=== PATIENT | female | born 1980 | race African-American/Black ===

== ENCOUNTER 2016-06-26 10:02 | Emergency (ER) | payer MEDICAID, OTHER ==
[~2016-06-26] VITALS: Ht 170.2 cm; Wt 80.5 kg
[~2016-06-26 10:02] MED LIST: ALBU8I INH; AMOX500T PO; PRED20 PO; SYMB80AE INH
[2016-06-26 10:04] VITALS: BP 115/66; PULSE 84; RESP 20; TEMP 98.6; O2SAT 98
--- NOTE | 2016-06-26 10:21 | PD ---
HPI . chronic right shoulder pain Chief Complaint: Injury Time Seen by Provider: 10:21 Travel History International Travel<30 days: No Contact w/Intl Traveler<30days: No Traveled to known affect area: No History of Present Illness HPI 35-year-old female with chronic right shoulder pain here with complaints of worsening pain for the past 2 days. Patient says that she was cooking spaghetti and does not recall any type of injury. She is complaining of right shoulder pain and has difficulty moving her right shoulder in abduction and abduction positions. She tells me that she's had shoulder problems and seen her primary care provider. She had an x-ray done, but was never called back on the results. She tells me that more than likely she is certain that the x-ray was normal. She has no other complaints. PFSH Past Medical History Hx Anticoagulant Therapy: No Cardiovascular Problems: No Chemotherapy: No Cerebrovascular Accident: No Diabetes: Yes Respiratory: Yes (Asthma) ?: Not LMP: My period started today Social History Alcohol Use: No Tobacco Use: No Allergies-Medications (Allergen,Severity, Reaction): Coded Allergies: No Known Allergies (Unverified , 05/19/15) Reported Meds & Prescriptions Reported Meds & Active Scripts Active Robaxin (Methocarbamol) 500 Mg Tab 500 Mg PO TID Ibuprofen 800 Mg Tab 800 Mg PO TID Amoxicillin 500 Mg Cap 500 Mg PO Q8 7 Days Deltasone (Prednisone) 20 Mg Tab 20 Mg PO TID Reported Ventolin Hfa (Albuterol Sulfate) 8 Gm Aero 1 Puff INH Q4 * SHAKE WELL BEFORE USE * Symbicort (Budesonide/Formoterol Fumarate) 80 Mcg/4.5 Mcg Aer 2 Puff INH BID * SHAKE WELL BEFORE USE * Review of Systems General / Constitutional: No: Fever Eyes: No: Visual changes HENT: No: Headaches Cardiovascular: No: Chest Pain or Discomfort Respiratory: No: Shortness of Breath Gastrointestinal: No: Abdominal Pain Genitourinary: No: Dysuria Musculoskeletal: Positive: Pain (right shoulder) Skin: No Rash Neurologic: No: Weakness Psychiatric: No: Depression Endocrine: No: Polydipsia Hematologic/Lymphatic: No: Easy Bruising Physical Exam Narrative GENERAL: AAO x 3, no acute distress, Well-nourished, well-developed patient. SKIN: Warm and dry. No visible rashes or bruising. No ecchymosis or edema of the right shoulder HEAD: Normocephalic and atraumatic. EYES: No scleral icterus. No injection or drainage. ENT: No nasal drainage noted. NECK: Supple, trachea midline. No JVD. CARDIOVASCULAR: Regular rate and rhythm without murmurs, gallops, or rubs. RESPIRATORY: Breath sounds equal bilaterally. No accessory muscle use. No rhonchi or rales. GASTROINTESTINAL: Visual inspection normal EXTREMITIES: No cyanosis or edema. Right shoulder decreased ability to abduct. Abduction is normal. She is able to cross her arms and rotate them normally. + lift off test BACK: Nontender without obvious deformity. No CVA tenderness. PSYCH: AAO x 3, normal affect. Data Data Last Documented VS Vital Signs Date Time Temp Pulse Resp B/P Pulse Ox O2 Delivery O2 Flow Rate FiO2 06/26/16 10:04 98.6 84 20 115/66 98 Room Air Orders Support Splint (06/26/16 10:39) MDM Medical Decision Making Medical Screen Exam Complete: Yes Emergency Medical Condition: Yes Medical Record Reviewed: Yes Differential Diagnosis Chronic shoulder pain, rotator cuff injury, less likely shoulder dislocation, less likely shoulder fracture Narrative Course This is a 35-year-old female with chronic shoulder pain. Full examination was done of the right shoulder and it appears that she may have a rotator cuff injury. I have discussed these findings with her and recommended follow-up with her primary care provider. In the meantime I'll provide her with some muscle relaxers see if this helps provide any relief. I discussed side effects. Sling provided for support. Patient verbalized understanding of instructions, questions were answered, and thanked me for their care. I advised them if their condition worsens, please return to the nearest emergency room for further care. Diagnosis Primary Impression: Right shoulder pain Qualified Code: M25.511 - Chronic right shoulder pain Additional Impression: Muscle strain, shoulder region Qualified Code: S46.911A - Muscle strain, shoulder region, right, initial encounter Patient Instructions: General Instructions Additional Instructions: Muscle relaxers can cause drowsiness. Do not drive, swim or operate heavy machinery while using these medications. Please return to emergency department if your symptoms return or worsen. Follow up with your primary care provider. Take medications as prescribed. Med/Other Pt SpecificInfo: Prescription(s) given Scripts Methocarbamol (Robaxin)500 Mg [id number] Mg PO TID #21 TAB Prov:Madhuri Perez DO 06/26/16 Ibuprofen 800 Mg [id number] Mg PO TID #21 TAB Prov:Madhuri Perez DO 06/26/16 Disposition: 01 DISCHARGE HOME Condition: Stable Brenda Fleming June 26, 2016 10:21 Brenda Fleming June 26, 2016 10:21
[2016-06-26] MEDS ORDERED: ROBA500T PO (10:26)
[2016-06-26] MEDS ORDERED: IBUP800T23 PO (10:26)
== END 2016-06-26 10:46 | disposition home or self-care (01) ==
LOC: NEPK 10:02
DX: S46.911A Strain of unspecified muscle, fascia and tendon at shoulder and upper arm level, right arm, initial encounter (principal); M25.511 Pain in right shoulder; G89.29 Other chronic pain; E11.9 Type 2 diabetes mellitus without complications; J45.909 Unspecified asthma, uncomplicated; X58.XXXA Exposure to other specified factors, initial encounter
CPT/HCPCS: 99283

== ENCOUNTER 2016-10-01 23:47 | Emergency (ER) | payer MEDICAID ==
[~2016-10-01] VITALS: Ht 170.2 cm; Wt 80.0 kg
[~2016-10-01 23:47] MED LIST changes: +IBUP800T23 PO; +ROBA500T PO
[2016-10-01 23:49] VITALS: BP 122/67; PULSE 68; RESP 20; TEMP 98.3; O2SAT 99
--- NOTE | 2016-10-02 01:06 | PD ---
HPI Chief Complaint: Chest Pain Time Seen by Provider: 00:40 Travel History International Travel<30 days: No Contact w/Intl Traveler<30days: No Traveled to known affect area: No History of Present Illness HPI 36 years old female complains of chest pain. Patient started having palpitation and generalized malaise 2 days ago. Patient went to local urgent care and was referred to [facility] emergency room for evaluation. Patient states that she had x-ray, EKG and blood test done and was normal. Patient was discharged home. Patient started having sharp stabbing pain localized to the left chest about 2 hours prior coming to emergency room tonight. Patient denies any today. Patient denies any cough and congestion fever chills. Patient denies abdominal pain. Patient denies any nausea vomiting diarrhea. Patient states that she has yeast infection recently. Patient denies a history of CAD. Patient denies history hypertension. Patient has history of diabetes and asthma. Patient denies history of hyperlipidemia. Patient states that she stopped smoking 3 days ago. Patient denies any family history of heart disease. Patient states that she was told that she had PVC 2 days ago. PFSH Past Medical History Hx Anticoagulant Therapy: No Asthma: Yes Cardiovascular Problems: No Chemotherapy: No Cerebrovascular Accident: No Diabetes: Yes Patient Takes Glucophage: No Diminished Hearing: No Respiratory: Yes (Asthma) Tetanus Vaccination: Unknown ?: Not LMP: 06/21/2016 Past Surgical History Appendectomy: Yes Social History Alcohol Use: No Tobacco Use: No Substance Use: No Allergies-Medications (Allergen,Severity, Reaction): Coded Allergies: No Known Allergies (Unverified , 10/02/16) Reported Meds & Prescriptions Reported Meds & Active Scripts Active No Active Prescriptions or Reported Medications Review of Systems General / Constitutional: No: Fever Eyes: No: Visual changes HENT: No: Headaches Cardiovascular: Positive: Chest Pain or Discomfort Respiratory: No: Shortness of Breath Gastrointestinal: No: Abdominal Pain Genitourinary: No: Dysuria Musculoskeletal: No: Pain Skin: No Rash Neurologic: No: Weakness Psychiatric: No: Depression Endocrine: No: Polydipsia Hematologic/Lymphatic: No: Easy Bruising Physical Exam Narrative GENERAL: Well-nourished, well-developed patient. SKIN: Focused skin assessment warm/dry. HEAD: Normocephalic. EYES: No scleral icterus. No injection or drainage. NECK: Supple, trachea midline. No JVD or lymphadenopathy. CARDIOVASCULAR: Regular rate and rhythm without murmurs, gallops, or rubs. RESPIRATORY: Breath sounds equal bilaterally. No accessory muscle use. GASTROINTESTINAL: Abdomen soft, non-tender, nondistended. MUSCULOSKELETAL: No cyanosis, or edema. BACK: Nontender without obvious deformity. No CVA tenderness. Neurologic exam normal. Data Data Last Documented VS Vital Signs Date Time Temp Pulse Resp B/P (MAP) Pulse Ox O2 Delivery O2 Flow Rate FiO2 10/02/16 00:10 98 Room Air 10/01/16 23:49 98.3 68 20 122/67 (85) Orders Orders Complete Blood Count With Diff (10/02/16 00:53) Comprehensive Metabolic Panel (10/02/16 00:53) Creatine Kinase (Cpk) (10/02/16 00:53) Troponin I (10/02/16 00:53) Prothrombin Time / Inr (Pt) (10/02/16 00:53) Act Partial Throm Time (Ptt) (10/02/16 00:53) Thyroid Stimulating Hormone (10/02/16 00:53) Chest, Single Ap (10/02/16 00:53) Iv Access Insert/Monitor (10/02/16 00:53) Ecg Monitoring (10/02/16 00:53) Oximetry (10/02/16 00:53) Labs Laboratory Tests Test 10/02/16 01:03 White Blood Count 14.3 TH/MM3 Red Blood Count 4.93 MIL/MM3 Hemoglobin 14.6 GM/DL Hematocrit 44.0 % Mean Corpuscular Volume 89.3 FL Mean Corpuscular Hemoglobin 29.6 PG Mean Corpuscular Hemoglobin Concent 33.2 % Red Cell Distribution Width 13.9 % Platelet Count 317 TH/MM3 Mean Platelet Volume 8.3 FL Neutrophils (%) (Auto) 62.8 % Lymphocytes (%) (Auto) 28.9 % Monocytes (%) (Auto) 7.0 % Eosinophils (%) (Auto) 0.9 % Basophils (%) (Auto) 0.4 % Neutrophils # (Auto) 9.0 TH/MM3 Lymphocytes # (Auto) 4.1 TH/MM3 Monocytes # (Auto) 1.0 TH/MM3 Eosinophils # (Auto) 0.1 TH/MM3 Basophils # (Auto) 0.1 TH/MM3 CBC Comment DIFF FINAL Differential Comment Prothrombin Time 11.7 SEC Prothromb Time International Ratio 1.1 RATIO Activated Partial Thromboplast Time 27.4 SEC Blood Urea Nitrogen 11 MG/DL Creatinine 0.98 MG/DL Random Glucose 80 MG/DL Total Protein 7.9 GM/DL Albumin 4.1 GM/DL Calcium Level 9.2 MG/DL Alkaline Phosphatase 93 U/L Aspartate Amino Transf (AST/SGOT) 10 U/L Alanine Aminotransferase (ALT/SGPT) 16 U/L Total Bilirubin 0.9 MG/DL Sodium Level 140 MEQ/L Potassium Level 3.9 MEQ/L Chloride Level 108 MEQ/L Carbon Dioxide Level 21.5 MEQ/L Anion Gap 11 MEQ/L Estimat Glomerular Filtration Rate 78 ML/MIN Total Creatine Kinase 108 U/L Troponin I LESS THAN 0.02 NG/ML Thyroid Stimulating Hormone 3rd Gen 2.090 uIU/ML [facility] Medical Decision Making Medical Screen Exam Complete: Yes Emergency Medical Condition: Yes Interpretation(s) 2:06 AM. EKG shows sinus rhythm nonspecific ST-T wave change. Chest x-ray shows no acute cardiopulmonary disease. CBC WBC 14.3. Normal differential. CMP within normal limit. Cardiac enzymes are normal. Differential Diagnosis Differential diagnosis including PAC, PVCs, atrial fibrillation, atrial flutter , SVT, angina, OK, PE, pneumothorax, atypical chest pain. Narrative Course 36 old female with chest pain and history of arrhythmia. Diagnosis Primary Impression: Atypical chest pain Additional Impression: Cardiac arrhythmia Qualified Codes: I49.9 - Cardiac arrhythmia, unspecified Patient Instructions: General Instructions Additional Instructions: Aspirin daily. Follow-up with timber grader. Return if worse. Avoid caffeine products. Med/Other Pt SpecificInfo: No Meds Exist/No RX given Scripts No Active Prescriptions or Reported Meds Disposition: 01 DISCHARGE HOME Condition: Stable Rustam Zaidi MD Oct 02, 2016 01:06
--- NOTE | 2016-10-02 01:21 | RADRPT ---
EXAM DATE/TIME: 10/02/2016 01:08 [place] COMPARISON: No previous studies available for comparison. INDICATIONS : Chest pain. MEDICAL HISTORY : Diat[employer] SURGICAL HISTORY : None. ENCOUNTER: Initial ACUITY: 1 day PAIN SCORE: 6/10 LOCATION: Bilateral chest FINDINGS: A single view of the chest demonstrates the lungs to be symmetrically aerated without evidence of mas s, infiltrate or effusion. The cardiomediastinal contours are unremarkable. Osseous structures are intact. CONCLUSION: Normal examination. Derek Rosenberg MD on October 02, 2016 at 1:19 Board Certified Radiologist. This report was verified electronically.
[2016-10-02 01:30] LABS: BASOPHIL # 0.1 TH/MM3 (0-0.2); BASOPHIL % 0.4 % (0.0-2.0); EOSINOPHIL # 0.1 TH/MM3 (0-0.4); EOSINOPHIL % 0.9 % (0.0-4.0); HEMO FLAGS DIFF FINAL; LYMPH % 28.9 % (9.0-44.0); LYMPHOCYTE # 4.1 TH/MM3 (1.0-4.8); MEAN CELL VOLUME 89.3 FL (80.0-100.0); MEAN CORPUSCULAR HEMOGLOBIN 29.6 PG (27.0-34.0); MEAN CORPUSCULAR HGB CONC 33.2 % (32.0-36.0); NEUT % 62.8 % (16.0-70.0); PLATELET COUNT 317 TH/MM3 (150-450); RED BLOOD COUNT 4.93 MIL/MM3 (4.00-5.30); RED CELL DISTRIBUTION WIDTH 13.9 % (11.6-17.2); WHITE BLOOD COUNT 14.3 TH/MM3 (4.0-11.0)
[2016-10-02 01:45] LABS: APTT (PATIENT) 27.4 SEC (24.3-30.1); INTERNATIONAL NORMALIZED RATIO 1.1 RATIO; PROTHROMBIN TIME - PATIENT 11.7 SEC (9.8-11.6)
[2016-10-02 01:51] LABS: ALT (GPT) 16 U/L (10-53); ANION GAP 11 MEQ/L (5-15); AST (GOT) 10 U/L (15-37); BICARBONATE 21.5 MEQ/L (21.0-32.0); BLOOD UREA NITROGEN 11 MG/DL (7-18); CHLORIDE 108 MEQ/L (98-107); GLOMERULAR FILTRATION RATE 78 ML/MIN (>89); POTASSIUM 3.9 MEQ/L (3.5-5.1); SODIUM (NA) 140 MEQ/L (136-145)
[2016-10-02 02:00] LABS: ALKALINE PHOSPHATASE 93 U/L (45-117); CREATINE KINASE 108 U/L (26-192); TOTAL BILIRUBIN ADULT 0.9 MG/DL (0.2-1.0)
--- NOTE | 2016-10-02 15:58 | EKG ---
Date Performed: 10/02/2016 Time Performed: 00:13:43 PTAGE: 36 years EKG: Sinus rhythm NONSPECIFIC ST ELEVATION BORDERLINE ECG NO PREVIOUS TRACING DOCTOR: Mik Parra Interpretating Date/Time 10/02/2016 15:56:57
== END 2016-10-02 02:29 | disposition home or self-care (01) ==
LOC: NEPC 23:47
DX: R07.89 Other chest pain (principal); R00.2 Palpitations; R53.81 Other malaise; I49.9 Cardiac arrhythmia, unspecified; J45.909 Unspecified asthma, uncomplicated; E11.9 Type 2 diabetes mellitus without complications
CPT/HCPCS: 71010; 80053; 82550; 84443; 84484; 85025; 85610; 85730; 93005; 99284

== ENCOUNTER 2017-01-03 17:47 | Emergency (ER) | payer MEDICAID ==
[2017-01-03 17:49] VITALS: BP 114/62; PULSE 65; RESP 12; TEMP 98.2; O2SAT 98
[2017-01-03] MEDS ORDERED: CLIN300C5 PO (18:55)
--- NOTE | 2017-01-03 18:55 | PD ---
HPI Chief Complaint: Skin Problem Time Seen by Provider: 18:28 Travel History International Travel<30 days: No Contact w/Intl Traveler<30days: No Traveled to known affect area: No History of Present Illness HPI 36 year female presents to the emergency department complaining of a lesion on her right cheek. Patient states that this lesion has been there for approximately one week but has worsened over the last 2 days. Patient states that her pain is moderate and extends somewhat into her neck. Patient has been trying to use warm showers to relieve this but has been unsuccessful. Patient denies fever or chills. States she does get these abscesses every once in a while and usually has them drained. She has never had an abscess on her face however. PFSH Past Medical History Hx Anticoagulant Therapy: No Asthma: Yes Cardiovascular Problems: No Chemotherapy: No Cerebrovascular Accident: No Diabetes: Yes Diminished Hearing: No Respiratory: Yes (Asthma) Past Surgical History Appendectomy: Yes Social History Alcohol Use: No Tobacco Use: No Substance Use: No Allergies-Medications (Allergen,Severity, Reaction): Coded Allergies: sulfamethoxazole (Unverified Allergy, Mild, 01/03/17) trimethoprim (Unverified Allergy, Mild, 01/03/17) Reported Meds & Prescriptions Reported Meds & Active Scripts Active Clindamycin (Clindamycin HCl) 300 Mg Cap 300 Mg PO TID 7 Days Review of Systems Except as stated in HPI: all other systems reviewed are Neg Physical Exam Narrative GENERAL: WD WN in mild distress SKIN: Warm and dry. Right cheek- just anterior to angle of jaw, a 1.3cm round, fluctuant mass, very tender, no expression of fluid. Central puncta present. HEAD: Normocephalic. EYES: No scleral icterus. No injection or drainage. NECK: Supple, trachea midline. No JVD. Right anterior cervical chain mildly tender. no meningismus. CARDIOVASCULAR: Regular rate and rhythm without murmurs, gallops, or rubs. RESPIRATORY: Breath sounds equal bilaterally. No accessory muscle use. MUSCULOSKELETAL: No cyanosis, or edema. BACK: Nontender without obvious deformity. No CVA tenderness. Data Data Last Documented VS Vital Signs Date Time Temp Pulse Resp B/P (MAP) Pulse Ox O2 Delivery O2 Flow Rate FiO2 01/03/17 17:49 98.2 65 12 114/62 (79) 98 Orders Orders Clindamycin Inj (Cleocin Inj) (01/03/17 19:00) Ed Discharge Order (01/03/17 19:00) [facility] Medical Decision Making Medical Screen Exam Complete: Yes Emergency Medical Condition: Yes Differential Diagnosis Right cheek abscess versus cellulitis versus laceration Narrative Course 36 year female presents to the emergency department complaining of a lesion on her right cheek. Patient states that this lesion has been there for approximately one week but has worsened over the last 2 days. Patient states that her pain is moderate and extends somewhat into her neck. Patient has been trying to use warm showers to relieve this but has been unsuccessful. Patient denies fever or chills. States she does get these abscesses every once in a while and usually has them drained. She has never had an abscess on her face however. Vital Signs stable I&D attempted after advised patient of risks versus benefit of the procedure. I was barely able to inject lidocaine into the lesion and patient was not able to hold steady long enough for safe use of instruments or for full local anesthesia. I advised pt that to avoid risk of injury to herself or others, it would be best if she took antibiotics and warm compresses to attempt drainage herself, without the use of scalpel. Pt agreed and will follow up with her PCP. Clindamycin 600mg IM in the ED. Clindamycin for outpatient use. She understands the importance of taking antibiotics as prescribed and following up with her PCP. Pt will return to the ED for worsening or persistent symptoms. Advised on wound care for small incision made today. She understands and will comply. Procedures Procedure Narrative INCISION AND DRAINAGE OF ABSCESS: The area was prepped and was sterilely draped. A subcutaneous wheal of 1% % Xylocaine without epinephrine a total number 1.5 mL was used to anesthetize the area properly. A number 11 scalpel was used to make a 2-3 mm incision across the area of the abscess. I was unable to incise deep enough to reach the cyst. Patient tolerated procedure poorly and had to cease attempts. Diagnosis Primary Impression: Abscess of right external cheek Referrals: Primary Care Physician Additional Instructions: Follow-up the primary care physician within 2-3 days. Use warm compresses and lightly massage the area. Take all antibiotics as prescribed. If her symptoms persist or worsen return to the emergency department. Scripts Clindamycin (Clindamycin) 300 Mg Cap 300 MG PO TID for Infection for 7 Days, CAP 0 Refills Prov: Ubaldo Guillory MD 01/03/17 Disposition: 01 DISCHARGE HOME Condition: Stable Analilia Wilkerson Jan 03, 2017 18:55
[2017-01-03] MEDS ORDERED: CLINDAMYCIN PHOS 600 MG/4 ML VIAL IM ONE (19:00)
== END 2017-01-03 19:47 | disposition home or self-care (01) ==
LOC: NEPK 17:47
DX: L02.01 Cutaneous abscess of face (principal); J45.909 Unspecified asthma, uncomplicated; E11.9 Type 2 diabetes mellitus without complications
CPT/HCPCS: 10060; 96372

== ENCOUNTER 2017-04-10 21:41 | Emergency (ER) | payer MEDICAID ==
[~2017-04-10] VITALS: Ht 170.2 cm; Wt 82.0 kg
[~2017-04-10 21:41] MED LIST changes: -ALBU8I INH; -AMOX500T PO; +CLIN300C5 PO; -IBUP800T23 PO; -PRED20 PO; -ROBA500T PO; -SYMB80AE INH
[2017-04-10 22:12] VITALS: BP 112/58; PULSE 60; RESP 18; TEMP 98.1; O2SAT 99
[2017-04-10] MEDS ORDERED: ASPIRIN 81 MG CHEW TAB PO ONE (22:45)
[2017-04-10] MEDS ORDERED: SODIUM CHLORIDE 0.9% FLUSH 10 ML FLUSH IVF PRN (22:45)
--- NOTE | 2017-04-10 22:47 | PD ---
HPI Chief Complaint: Respiratory Symptoms Time Seen by Provider: 22:23 Travel History International Travel<30 days: No Contact w/Intl Traveler<30days: No Traveled to known affect area: No History of Present Illness HPI 36-year-old female presents emergency department with complaints of chest tightness. Patient states that she has had a history of asthma and atrial fibrillation. She states she had an episode a few months ago. She had a admission at [facility] with evaluations of EKG, laboratory testing and a echocardiogram. She was discharged for follow-up. She has an appointment to see the commodity lead next week. He has an appointment tomorrow with Dr. Burns. Patient states that she was concerned due to this tightness in her chest and feels that is not her typical asthma. She was not sure whether she was having recurrent atrial fibrillation or not. She does not report any fast or irregular heartbeat. He states that she does feel that her heart beating strongly. She denies any nausea vomiting. No diaphoresis or shortness of breath. No wheezing. No recent illness. She denies any tobacco or drugs. PFS Past Medical History Narrative Medical Asthma, atrial fibrillation, gestational diabetes Hx Anticoagulant Therapy: No Asthma: Yes Atrial Fibrillation: Yes Cardiovascular Problems: No Chemotherapy: No Cerebrovascular Accident: No Diabetes: Yes Patient Takes Glucophage: No Diminished Hearing: No Respiratory: Yes (Asthma) Immunizations Current: Yes Tetanus Vaccination: < 5 Years ?: Unknown LMP: 04/04/17 : 4 Para: 1 Miscarriage: 1 : 2 Past Surgical History Appendectomy: Yes Social History Alcohol Use: No Tobacco Use: No Substance Use: No Allergies-Medications (Allergen,Severity, Reaction): Coded Allergies: sulfamethoxazole (Verified Allergy, Mild, 04/10/17) trimethoprim (Verified Allergy, Mild, 04/10/17) Reported Meds & Prescriptions Reported Meds & Active Scripts Active No Active Prescriptions or Reported Medications Review of Systems Except as stated in HPI: all other systems reviewed are Neg Physical Exam Narrative GENERAL: Well-developed, well-nourished in no apparent distress. Nontoxic appearing. HEAD: Normocephalic, atraumatic. EYES: Pupils equal round and reactive. Extraocular motions intact. No scleral icterus. No injection or drainage. ENT: Nose clear. Throat without erythema, tonsillar hypertrophy or exudate. Uvula midline. Airway patent. NECK: Trachea midline. Supple, nontender, moves head freely. No central bony tenderness or spasm. CARDIOVASCULAR: Regular rate and rhythm without murmurs, gallops, or rubs. RESPIRATORY: Clear to auscultation. Breath sounds equal bilaterally. No wheezes , rales, or rhonchi. GASTROINTESTINAL: Abdomen soft, non-tender, nondistended. No hepato-splenomegaly , or palpable masses. No guarding. EXTREMITIES: No clubbing, cyanosis, or edema. No joint tenderness. BACK: Nontender without deformity. No flank tenderness. NEUROLOGICAL: Awake, alert and oriented x 3 .Cranial nerves grossly intact. Motor and sensory grossly within normal limits. Normal speech. Data Data Last Documented VS Vital Signs Date Time Temp Pulse Resp B/P (MAP) Pulse Ox O2 Delivery O2 Flow Rate FiO2 04/11/17 00:29 04/10/17 23:22 98 Room Air 04/10/17 22:12 98.1 60 18 Orders Orders Electrocardiogram (04/10/17 22:41) Basic Metabolic Panel (Bmp) (04/10/17 22:41) Ckmb (Isoenzyme) Profile (04/10/17 22:41) Complete Blood Count With Diff (04/10/17 22:41) Troponin I (04/10/17 22:41) Ecg Monitoring (04/10/17 22:41) Iv Access Insert/Monitor (04/10/17 22:41) Oximetry (04/10/17 22:41) Oxygen Administration (04/10/17 22:41) Aspirin Chew (Aspirin Chew) (04/10/17 22:45) Sodium Chloride 0.9% Flush (Ns Flush) (04/10/17 22:45) Chest, Pa & Lat (04/10/17 22:41) Westergren Sedimentation Rate (04/10/17 22:41) CKMB (04/10/17 23:30) CKMB% (04/10/17 23:30) Ed Discharge Order (04/11/17 00:41) Labs Laboratory Tests Test 04/10/17 23:30 White Blood Count 10.8 TH/MM3 Red Blood Count 4.65 MIL/MM3 Hemoglobin 14.0 GM/DL Hematocrit 40.2 % Mean Corpuscular Volume 86.5 FL Mean Corpuscular Hemoglobin 30.0 PG Mean Corpuscular Hemoglobin Concent 34.7 % Red Cell Distribution Width 14.5 % Platelet Count 319 TH/MM3 Mean Platelet Volume 8.0 FL Neutrophils (%) (Auto) 60.5 % Lymphocytes (%) (Auto) 30.1 % Monocytes (%) (Auto) 7.6 % Eosinophils (%) (Auto) 1.2 % Basophils (%) (Auto) 0.6 % Neutrophils # (Auto) 6.6 TH/MM3 Lymphocytes # (Auto) 3.3 TH/MM3 Monocytes # (Auto) 0.8 TH/MM3 Eosinophils # (Auto) 0.1 TH/MM3 Basophils # (Auto) 0.1 TH/MM3 CBC Comment DIFF FINAL Differential Comment Erythrocyte Sedimentation Rate 3 mm/hr Blood Urea Nitrogen 10 MG/DL Creatinine 0.77 MG/DL Random Glucose 117 MG/DL Calcium Level 8.9 MG/DL Sodium Level 139 MEQ/L Potassium Level 3.6 MEQ/L Chloride Level 108 MEQ/L Carbon Dioxide Level 22.3 MEQ/L Anion Gap 9 MEQ/L Estimat Glomerular Filtration Rate 103 ML/MIN Total Creatine Kinase 170 U/L Creatine Kinase MB 0.8 NG/ML Troponin I LESS THAN 0.02 NG/ML MDM Medical Decision Making Medical Screen Exam Complete: Yes Emergency Medical Condition: Yes Medical Record Reviewed: Yes Interpretation(s) Laboratory Tests Test 04/10/17 23:30 White Blood Count 10.8 TH/MM3 Red Blood Count 4.65 MIL/MM3 Hemoglobin 14.0 GM/DL Hematocrit 40.2 % Mean Corpuscular Volume 86.5 FL Mean Corpuscular Hemoglobin 30.0 PG Mean Corpuscular Hemoglobin Concent 34.7 % Red Cell Distribution Width 14.5 % Platelet Count 319 TH/MM3 Mean Platelet Volume 8.0 FL Neutrophils (%) (Auto) 60.5 % Lymphocytes (%) (Auto) 30.1 % Monocytes (%) (Auto) 7.6 % Eosinophils (%) (Auto) 1.2 % Basophils (%) (Auto) 0.6 % Neutrophils # (Auto) 6.6 TH/MM3 Lymphocytes # (Auto) 3.3 TH/MM3 Monocytes # (Auto) 0.8 TH/MM3 Eosinophils # (Auto) 0.1 TH/MM3 Basophils # (Auto) 0.1 TH/MM3 CBC Comment DIFF FINAL Differential Comment Erythrocyte Sedimentation Rate 3 mm/hr Blood Urea Nitrogen 10 MG/DL Creatinine 0.77 MG/DL Random Glucose 117 MG/DL Calcium Level 8.9 MG/DL Sodium Level 139 MEQ/L Potassium Level 3.6 MEQ/L Chloride Level 108 MEQ/L Carbon Dioxide Level 22.3 MEQ/L Anion Gap 9 MEQ/L Estimat Glomerular Filtration Rate 103 ML/MIN Total Creatine Kinase 170 U/L Creatine Kinase MB 0.8 NG/ML Troponin I LESS THAN 0.02 NG/ML Last 24 hours Impressions Chest X-Ray 04/10/17 2241 Signed Impressions: Service Date/Time: Monday, April 10, 2017 22:51 - CONCLUSION: No acute cardiopulmonary abnormality is identified. Epifanio Ashby MD EKG: Sinus bradycardia with a ventricular rate of 53. No abnormal ST-T wave changes. No STEMI. Normal interval. Normal axis. Differential Diagnosis MDM: High Differential diagnoses: Coronary artery disease, STEMI, angina, pneumothorax, pericarditis, endocarditis, hyperthyroidism, arrhythmia, pulmonary embolus, pneumonia, electrolyte abnormality, asthma, anxiety Narrative Course IV access is obtained. Routine laboratory tests sent for analysis. Patient is placed on a panel monitor. EKG. 1 aspirin 325 mg p.o. Patient's EKG is unremarkable. She has had no ectopy on her monitor. She has been resting comfortable sleeping. Laboratory tests are unremarkable. Patient has an appointment to see her doctor tomorrow. The patient has been medically stable here in the ER and is discharged home. Patient agrees with treatment plan and follow-up. This is noncardiac chest pain Diagnosis Primary Impression: Non-cardiac chest pain Patient Instructions: General Instructions Additional Instructions: Rest. Increase fluids. Follow-up with your doctor tomorrow as scheduled. Med/Other Pt SpecificInfo: No Meds Exist/No RX given Scripts No Active Prescriptions or Reported Meds Disposition: DISCHARGE HOME Condition: Stable Alejandro Lizarraga Apr 10, 2017 22:47
--- NOTE | 2017-04-10 23:01 | RADRPT ---
EXAM DATE/TIME: 04/10/2017 22:51 [facility] COMPARISON: CHEST SINGLE AP, October 02, 2016, 1:08. INDICATIONS : Chest pain MEDICAL HISTORY : Diabetes mellitus type II. SURGICAL HISTORY : None. ENCOUNTER: Initial ACUITY: 4 - 6 days PAIN SCORE: 0/10 LOCATION: chest FINDINGS: PA and lateral views of the chest demonstrate a normal-sized cardiac silhouette. There is no effusion , consolidation, or pneumothorax. The bones and soft tissues demonstrate no acute abnormality. Multip le EKG lines overlie the patient. CONCLUSION: No acute cardiopulmonary abnormality is identified. Epifanio Ashby MD on April 10, 2017 at 22:58 Board Certified Radiologist. This report was verified electronically.
[2017-04-10 23:37] LABS: AUTOMATED NEUTROPHIL # 6.6 TH/MM3 (1.8-7.7); BASOPHIL # 0.1 TH/MM3 (0-0.2); BASOPHIL % 0.6 % (0.0-2.0); EOSINOPHIL # 0.1 TH/MM3 (0-0.4); EOSINOPHIL % 1.2 % (0.0-4.0); HEMATOCRIT 40.2 % (35.0-46.0); LYMPH % 30.1 % (9.0-44.0); LYMPHOCYTE # 3.3 TH/MM3 (1.0-4.8); MEAN CELL VOLUME 86.5 FL (80.0-100.0); MEAN CORPUSCULAR HGB CONC 34.7 % (32.0-36.0); MONO % 7.6 % (0.0-8.0); MONOCYTE # 0.8 TH/MM3 (0-0.9); NEUT % 60.5 % (16.0-70.0); PLATELET COUNT 319 TH/MM3 (150-450); RED BLOOD COUNT 4.65 MIL/MM3 (4.00-5.30); RED CELL DISTRIBUTION WIDTH 14.5 % (11.6-17.2); WHITE BLOOD COUNT 10.8 TH/MM3 (4.0-11.0)
[2017-04-10 23:48] LABS: BICARBONATE 22.3 MEQ/L (21.0-32.0); BLOOD UREA NITROGEN 10 MG/DL (7-18); CALCIUM 8.9 MG/DL (8.5-10.1); CHLORIDE 108 MEQ/L (98-107); CREATININE 0.77 MG/DL (0.50-1.00); GLOMERULAR FILTRATION RATE 103 ML/MIN (>89); GLUCOSE,RANDOM 117 MG/DL (74-106); SODIUM (NA) 139 MEQ/L (136-145)
[2017-04-10 23:52] LABS: TROPONIN I LESS THAN 0.02 NG/ML (0.02-0.05)
--- NOTE | 2017-04-14 13:23 | EKG ---
Date Performed: 04/10/2017 Time Performed: 23:13:11 PTAGE: 36 years EKG: SINUS BRADYCARDIA BORDERLINE ECG PREVIOUS TRACING : 10/02/2016 00.13 Since the prior tracing, there has been no significant [place] DOCTOR: Spencer Vance Interpretating Date/Time 04/14/2017 13:23:10
== END 2017-04-11 01:03 | disposition home or self-care (01) ==
LOC: NEPD 21:41
DX: R07.89 Other chest pain (principal); R00.1 Bradycardia, unspecified
CPT/HCPCS: 71046; 80048; 82550; 82552; 84484; 85025; 85652; 93005